=== PATIENT | female | born 1970 | race Caucasian/White ===

== ENCOUNTER 2019-12-03 17:46 | Emergency (ER) | payer BC ==
[2019-12-03] MEDS ORDERED: PROAIR DIG108 MCG/AC IN (18:06)
[2019-12-03] MEDS ORDERED: CITALOPRAM40 M1 PO (18:06)
[2019-12-03 18:20] LABS: HEMATOCRIT 46.7 % (37.0-47.0); HEMOGLOBIN 15.5 g/dl (12.0-16.0); IMMATURE GRANULOCYTES 0.4 % (0.0-5.0); MEAN CELL VOLUME 94.3 fL CALC (80.0-100.0); MEAN CORPUSCULAR HGB 31.3 pG CALC (26.0-32.0); MEAN CORPUSCULAR HGB CONC 33.2 g/dL CAL (32.0-36.0); NEUT# 8.03 thou/uL (2.00-7.15); RED BLOOD COUNT 4.95 mill/uL (4.20-5.60); RED CELL DISTRI WIDTH 13.2 % (11.5-15.5)
[2019-12-03 18:33] LABS: ALBUMIN 3.9 g/dL (3.2-5.0); ALKALINE PHOSPHATASE 81 u/l (38-126); ANION GAP 10 (6-22 (CALC)); BILIRUBIN, TOTAL 0.2 mg/dL (0.0-1.4); BUN 7 mg/dL (7-17); BUN/CREATININE RATIO 11 (12-20 (CALC)); CARBON DIOXIDE 23 mmol/l (22-30); CHLORIDE 104 mmol/l (95-108); CREATININE 0.6 mg/dL (0.5-1.0); GFR > 60 ML/MIN (>=60 (CALC)); GFR FOR AFR.AMER. > 60 ML/MIN (>=60 (CALC)); LIPASE 57 u/l (23-300); POTASSIUM 3.9 mmol/l (3.5-5.1); SGOT/AST 20 u/l (14-36); SODIUM 133 mmol/l (137-146); TOTAL PROTEIN 6.7 g/dL (6.3-8.2)
[2019-12-03 19:32] LABS: URINE BILIRUBIN - DIPSTICK NEGATIVE (NEGATIVE); URINE BLOOD DIPSTICK NEGATIVE (NEGATIVE); URINE COLOR YELLOW; URINE GLUCOSE - DIPSTICK NEGATIVE (NEGATIVE); URINE KETONE NEGATIVE (NEGATIVE); URINE LEUK ESTERASE NEGATIVE (NEGATIVE); URINE NITRITE - DIPSTICK NEGATIVE (Negative); URINE PROTEIN - DIPSTICK NEGATIVE (NEG-TRACE); URINE UROBILINOGEN - DIPSTICK 0.2 E.U./dL (0.2)
[2019-12-03] MEDS ORDERED: MIRALAX3350 N1 PO ×2 (20:36)
[2019-12-03 21:22] VITALS: BP 136/89
== END 2019-12-03 21:22 | disposition home or self-care (01) | DRG 390 ==
LOC: ED 17:46
PROVIDERS: Family Medicine
DX: K56.41 Fecal impaction (principal); I10 Essential (primary) hypertension; J44.9 Chronic obstructive pulmonary disease, unspecified

== ENCOUNTER 2020-01-17 09:21 | Emergency (ER) | payer BC ==
[~2020-01-17] VITALS: Ht 152.4 cm; Wt 68.2 kg
[~2020-01-17 09:21] MED LIST: CITALOPRAM40 M1 PO; MIRALAX3350 N1 PO; PROAIR DIG108 MCG/AC IN
[2020-01-17 10:30] LABS: HEMATOCRIT 49.2 % (37.0-47.0); HEMOGLOBIN 16.3 g/dl (12.0-16.0); IMMATURE GRANULOCYTES 0.3 % (0.0-5.0); MEAN CELL VOLUME 94.3 fL CALC (80.0-100.0); MEAN CORPUSCULAR HGB 31.2 pG CALC (26.0-32.0); MEAN CORPUSCULAR HGB CONC 33.1 g/dL CAL (32.0-36.0); NEUT# 7.04 thou/uL (2.00-7.15); RED BLOOD COUNT 5.22 mill/uL (4.20-5.60); RED CELL DISTRI WIDTH 13.5 % (11.5-15.5)
[2020-01-17 10:41] LABS: ALBUMIN 4.2 g/dL (3.2-5.0); ALKALINE PHOSPHATASE 83 u/l (38-126); ANION GAP 11 (6-22 (CALC)); BUN 10 mg/dL (7-17); BUN/CREATININE RATIO 14 (12-20 (CALC)); CARBON DIOXIDE 24 mmol/l (22-30); CHLORIDE 105 mmol/l (95-108); CREATININE 0.7 mg/dL (0.5-1.0); GFR > 60 ML/MIN (>=60 (CALC)); GFR FOR AFR.AMER. > 60 ML/MIN (>=60 (CALC)); POTASSIUM 4.6 mmol/l (3.5-5.1); SGOT/AST 20 u/l (14-36); SODIUM 136 mmol/l (137-146); TOTAL PROTEIN 6.4 g/dL (6.3-8.2)
[2020-01-17 10:42] LABS: BILIRUBIN, TOTAL 0.3 mg/dL (0.0-1.4)
[2020-01-17 10:51] LABS: ACT PARTIAL THROMBO TIME 26.5 SECONDS (20.0-32.5); PROTHROMBIN TIME 9.9 SECONDS (9.0-12.5)
[2020-01-17 10:55] LABS: D-DIMER 0.18 mg/L (0.19-0.60)
[2020-01-17] MEDS ORDERED: TRAZODONE50 MG PO (12:44)
[2020-01-17] MEDS ORDERED: DOXYCYC MONO100 M1 PO (13:38)
[2020-01-17] MEDS ORDERED: PROAIR HFA108 MCG/AC IN (13:38)
[2020-01-17 14:01] VITALS: BP 160/72
== END 2020-01-17 14:25 | disposition home or self-care (01) | DRG 192 ==
LOC: ED 09:21
PROVIDERS: Student in an Organized Health Care Education/Training Program
DX: J44.1 Chronic obstructive pulmonary disease with (acute) exacerbation (principal); I10 Essential (primary) hypertension; Z20.828 Contact with and (suspected) exposure to other viral communicable diseases
CPT/HCPCS: Q9967

== ENCOUNTER 2021-12-05 14:42 | Emergency (ER) | payer OTHER, BC ==
[2021-12-05] VITALS (10 sets, daily range): BP systolic 115–153; BP diastolic 71–100
[~2021-12-05] VITALS: Ht 152.4 cm; Wt 72.0 kg
[~2021-12-05 14:42] MED LIST changes: +DOXYCYC MONO100 M1 PO; +PROAIR HFA108 MCG/AC IN; +TRAZODONE50 MG PO
[2021-12-05] MEDS ORDERED: METOPROL TAR25 MG PO (15:00)
[2021-12-05] MEDS ORDERED: LOSARTAN POTASS50 MG PO (15:00)
[2021-12-05] MEDS ORDERED: MOTRIN800 MG PO (17:04)
== END 2021-12-05 17:22 | disposition home or self-care (01) | DRG 605 ==
LOC: ED 14:42
DX: S80.01XA Contusion of right knee, initial encounter (principal); S83.91XA Sprain of unspecified site of right knee, initial encounter; I10 Essential (primary) hypertension; J44.9 Chronic obstructive pulmonary disease, unspecified; W01.0XXA Fall on same level from slipping, tripping and stumbling without subsequent striking against object, initial encounter; Y92.89 Other specified places as the place of occurrence of the external cause; Y99.0 Civilian activity done for income or pay
CPT/HCPCS: L1830

== ENCOUNTER 2022-07-10 21:54 | Emergency (ER) | payer BC ==
[~2022-07-10] VITALS: Ht 152.4 cm; Wt 71.0 kg
[~2022-07-10 21:54] MED LIST changes: +LOSARTAN POTASS50 MG PO; +METOPROL TAR25 MG PO; +MOTRIN800 MG PO
[2022-07-10] MEDS ORDERED: HYDROCHLOROT25 MG PO (22:05)
[2022-07-10] MEDS ORDERED: METOPROL TAR25 MG PO (22:06)
[2022-07-10 22:18] VITALS: BP 98/69
[2022-07-10 22:20] VITALS: BP 109/71
[2022-07-10 22:30] VITALS: BP 105/69
[2022-07-10 22:45] VITALS: BP 91/56
[2022-07-10 23:02] LABS: BASO% 0.6 % (0-3); EOS% 0.7 % (0-8); HEMATOCRIT 47.3 % (37.0-47.0); HEMOGLOBIN 15.7 g/dl (12.0-16.0); IMMATURE GRANULOCYTES 0.2 % (0.0-5.0); LYMPH% 6.5 % (15-41); MEAN CELL VOLUME 97.9 fL CALC (80.0-100.0); MEAN CORPUSCULAR HGB 32.5 pG CALC (26.0-32.0); MEAN CORPUSCULAR HGB CONC 33.2 g/dL CAL (32.0-36.0); MONO% 4.6 % (2-13); NEUT# 8.94 thou/uL (2.00-7.15); NEUT% 87.4 % (42-76); RED BLOOD COUNT 4.83 mill/uL (4.20-5.60); RED CELL DISTRI WIDTH 13.5 % (11.5-15.5)
[2022-07-10 23:30] VITALS: BP 91/64
[2022-07-10 23:45] VITALS: BP 109/70
[2022-07-11] VITALS (8 sets, daily range): BP systolic 108–132; BP diastolic 69–87
[2022-07-11] MEDS ORDERED: VIBRAMYCIN100 M2 PO (00:45)
[2022-07-11] MEDS ORDERED: PREDNISONE50 MG PO (00:45)
[2022-07-11] MEDS ORDERED: ALBUTEROL SUL0.083 % IN (00:45)
== END 2022-07-11 01:58 | disposition home or self-care (01) | DRG 192 ==
LOC: ED 21:54
PROVIDERS: Family Medicine
DX: J44.1 Chronic obstructive pulmonary disease with (acute) exacerbation (principal)

== ENCOUNTER 2022-11-15 10:22 | Inpatient (IN) | payer BC ==
[2022-11-15] VITALS (22 sets, daily range): BP systolic 114–151; BP diastolic 59–88
[~2022-11-15] VITALS: Ht 152.4 cm; Wt 77.8 kg
[~2022-11-15 10:22] MED LIST changes: +ALBUTEROL SUL0.083 % IN; +HYDROCHLOROT25 MG PO; +PREDNISONE50 MG PO; +VIBRAMYCIN100 M2 PO
[2022-11-15 11:01] LABS: ALBUMIN 4.4 g/dL (3.2-5.0); ALKALINE PHOSPHATASE 77 u/l (38-126); ANION GAP 15 (6-22 (CALC)); BUN 11 mg/dL (7-17); BUN/CREATININE RATIO 17 (12-20 (CALC)); CARBON DIOXIDE 26 mmol/l (22-30); CHLORIDE 105 mmol/l (95-108); CREATININE 0.7 mg/dL (0.5-1.0); ETHYL ALCOHOL 0 mg/dl (0-30); GFR FOR AFR.AMER. > 60 ML/MIN (>=60 (CALC)); GFR OTHER RACES > 60 ML/MIN (>=60 (CALC)); POTASSIUM 4.5 mmol/l (3.5-5.1); SGOT/AST 33 u/l (14-36); SODIUM 142 mmol/l (137-146); TOTAL PROTEIN 6.7 g/dL (6.3-8.2)
[2022-11-15 11:17] LABS: BASO% 0.3 % (0-3); HEMOGLOBIN 16.4 g/dl (12.0-16.0); IMMATURE GRANULOCYTES 0.8 % (0.0-5.0); LYMPH% 3.8 % (15-41); MEAN CELL VOLUME 96.1 fL CALC (80.0-100.0); MEAN CORPUSCULAR HGB 32.2 pG CALC (26.0-32.0); MEAN CORPUSCULAR HGB CONC 33.5 g/dL CAL (32.0-36.0); MONO% 2.1 % (2-13); NEUT# 13.81 thou/uL (2.00-7.15); RED BLOOD COUNT 5.1 mill/uL (4.20-5.60); RED CELL DISTRI WIDTH 13.1 % (11.5-15.5)
[2022-11-15] MEDS ORDERED: TRELEGY ELLIPTA1 AE1 (12:56)
[2022-11-15 14:04] LABS: URINE BILIRUBIN - DIPSTICK NEGATIVE (NEGATIVE); URINE BLOOD DIPSTICK NEGATIVE (NEGATIVE); URINE COLOR YELLOW; URINE GLUCOSE - DIPSTICK NEGATIVE (NEGATIVE); URINE KETONE NEGATIVE (NEGATIVE); URINE LEUK ESTERASE NEGATIVE (NEGATIVE); URINE PROTEIN - DIPSTICK NEGATIVE (NEG-TRACE); URINE SPECIFIC GRAVITY >=1.030; URINE UROBILINOGEN - DIPSTICK 0.2 E.U./dL (0.2)
[2022-11-15 14:08] LABS: URINE NITRITE - DIPSTICK NEGATIVE (Negative)
[2022-11-16] VITALS (24 sets, daily range): BP systolic 106–151; BP diastolic 61–90
[2022-11-16 08:44] LABS: HEMATOCRIT 42.1 % (37.0-47.0); HEMOGLOBIN 13.6 g/dl (12.0-16.0); MEAN CELL VOLUME 101.7 fL CALC (80.0-100.0); MEAN CORPUSCULAR HGB 32.9 pG CALC (26.0-32.0); MEAN CORPUSCULAR HGB CONC 32.3 g/dL CAL (32.0-36.0); RED BLOOD COUNT 4.14 mill/uL (4.20-5.60); RED CELL DISTRI WIDTH 13.4 % (11.5-15.5)
[2022-11-16 09:00] LABS: ALKALINE PHOSPHATASE 55 u/l (38-126); ANION GAP 8 (6-22 (CALC)); BUN 13 mg/dL (7-17); BUN/CREATININE RATIO 18 (12-20 (CALC)); CARBON DIOXIDE 25 mmol/l (22-30); CHLORIDE 110 mmol/l (95-108); CREATININE 0.7 mg/dL (0.5-1.0); GFR FOR AFR.AMER. > 60 ML/MIN (>=60 (CALC)); GFR OTHER RACES > 60 ML/MIN (>=60 (CALC)); MAGNESIUM 1.7 mg/dL (1.6-2.3); SGOT/AST 26 u/l (14-36); SODIUM 139 mmol/l (137-146)
[2022-11-16 09:01] LABS: ALBUMIN 3.2 g/dL (3.2-5.0); BILIRUBIN, TOTAL 0.2 mg/dL (0.02-1.3); TOTAL PROTEIN 5.2 g/dL (6.3-8.2)
[2022-11-17] VITALS (24 sets, daily range): BP systolic 108–152; BP diastolic 66–98
[2022-11-17 04:23] LABS: HEMATOCRIT 41.2 % (37.0-47.0); HEMOGLOBIN 13.3 g/dl (12.0-16.0); MEAN CORPUSCULAR HGB 32.3 pG CALC (26.0-32.0); MEAN CORPUSCULAR HGB CONC 32.3 g/dL CAL (32.0-36.0); RED BLOOD COUNT 4.12 mill/uL (4.20-5.60); RED CELL DISTRI WIDTH 13.1 % (11.5-15.5)
[2022-11-17 04:52] LABS: ALBUMIN 3.3 g/dL (3.2-5.0); ALKALINE PHOSPHATASE 56 u/l (38-126); ANION GAP 5 (6-22 (CALC)); BUN 15 mg/dL (7-17); BUN/CREATININE RATIO 25 (12-20 (CALC)); CARBON DIOXIDE 28 mmol/l (22-30); CHLORIDE 110 mmol/l (95-108); CREATININE 0.6 mg/dL (0.5-1.0); GFR FOR AFR.AMER. > 60 ML/MIN (>=60 (CALC)); GFR OTHER RACES > 60 ML/MIN (>=60 (CALC)); MAGNESIUM 1.9 mg/dL (1.6-2.3); POTASSIUM 3.8 mmol/l (3.5-5.1); SGOT/AST 30 u/l (14-36); SODIUM 139 mmol/l (137-146); TOTAL PROTEIN 5.5 g/dL (6.3-8.2)
[2022-11-18] VITALS (27 sets, daily range): BP systolic 126–163; BP diastolic 72–133
[2022-11-18 06:03] LABS: ALBUMIN 3.6 g/dL (3.2-5.0); ALKALINE PHOSPHATASE 58 u/l (38-126); ANION GAP 11 (6-22 (CALC)); BUN 15 mg/dL (7-17); BUN/CREATININE RATIO 23 (12-20 (CALC)); CARBON DIOXIDE 24 mmol/l (22-30); CHLORIDE 108 mmol/l (95-108); CREATININE 0.6 mg/dL (0.5-1.0); GFR FOR AFR.AMER. > 60 ML/MIN (>=60 (CALC)); GFR OTHER RACES > 60 ML/MIN (>=60 (CALC)); MAGNESIUM 1.9 mg/dL (1.6-2.3); POTASSIUM 4.1 mmol/l (3.5-5.1); SGOT/AST 34 u/l (14-36); SODIUM 139 mmol/l (137-146)
[2022-11-18 06:06] LABS: HEMATOCRIT 41.8 % (37.0-47.0); HEMOGLOBIN 13.8 g/dl (12.0-16.0); MEAN CELL VOLUME 100.2 fL CALC (80.0-100.0); MEAN CORPUSCULAR HGB 33.1 pG CALC (26.0-32.0); RED BLOOD COUNT 4.17 mill/uL (4.20-5.60); RED CELL DISTRI WIDTH 13.1 % (11.5-15.5)
[2022-11-19] VITALS (30 sets, daily range): BP systolic 134–171; BP diastolic 77–105
[2022-11-20] VITALS: BP 158/87
[2022-11-20 02:00] VITALS: BP 147/84
[2022-11-20 04:00] VITALS: BP 138/81
[2022-11-20 05:49] LABS: HEMOGLOBIN 14.8 g/dl (12.0-16.0); MEAN CELL VOLUME 99.1 fL CALC (80.0-100.0); MEAN CORPUSCULAR HGB 32.6 pG CALC (26.0-32.0); MEAN CORPUSCULAR HGB CONC 32.9 g/dL CAL (32.0-36.0); RED BLOOD COUNT 4.54 mill/uL (4.20-5.60); RED CELL DISTRI WIDTH 13.2 % (11.5-15.5)
[2022-11-20 06:00] LABS: ALBUMIN 3.4 g/dL (3.2-5.0); ALKALINE PHOSPHATASE 60 u/l (38-126); CHLORIDE 103 mmol/l (95-108); CREATININE 0.8 mg/dL (0.5-1.0); GFR FOR AFR.AMER. > 60 ML/MIN (>=60 (CALC)); GFR OTHER RACES > 60 ML/MIN (>=60 (CALC)); POTASSIUM 4.3 mmol/l (3.5-5.1); SGOT/AST 27 u/l (14-36); SODIUM 136 mmol/l (137-146); TOTAL PROTEIN 5.5 g/dL (6.3-8.2)
[2022-11-20 06:01] VITALS: BP 153/87
[2022-11-20 06:03] LABS: ANION GAP 8 (6-22 (CALC)); BUN 36 mg/dL (7-17); BUN/CREATININE RATIO 45 (12-20 (CALC)); CARBON DIOXIDE 29 mmol/l (22-30)
[2022-11-20 08:00] VITALS: BP 157/95
[2022-11-20] MEDS ORDERED: TOPROL XL25 MG PO (08:17)
[2022-11-20] MEDS ORDERED: LEXAPRO10 MG PO (08:18)
[2022-11-20] MEDS ORDERED: PREDNISONE10 MG PO (08:19)
[2022-11-20 08:59] VITALS: BP 157/95
== END 2022-11-20 09:15 | disposition home or self-care (01) | DRG 917 ==
LOC: ED 10:22 → ED-I 13:00 → ED 14:04 → ICU 14:05
PROVIDERS: Family Medicine; ADMIT Internal Medicine; ATTEND Internal Medicine
DX: T42.8X2A Poisoning by antiparkinsonism drugs and other central muscle-tone depressants, intentional self-harm, initial encounter (principal); J96.01 Acute respiratory failure with hypoxia; C95.90 Leukemia, unspecified not having achieved remission; J44.1 Chronic obstructive pulmonary disease with (acute) exacerbation; T51.0X2A Toxic effect of ethanol, intentional self-harm, initial encounter; E86.0 Dehydration; F32.9 Major depressive disorder, single episode, unspecified; I10 Essential (primary) hypertension; F10.20 Alcohol dependence, uncomplicated; F17.200 Nicotine dependence, unspecified, uncomplicated; Y92.009 Unspecified place in unspecified non-institutional (private) residence as the place of occurrence of the external cause; Z87.442 Personal history of urinary calculi; Z91.51 Personal history of suicidal behavior; Z62.810 Personal history of physical and sexual abuse in childhood; Z79.899 Other long term (current) drug therapy; Z20.822 Contact with and (suspected) exposure to COVID-19
CPT/HCPCS: J1650

== ENCOUNTER 2024-01-04 18:22 | Emergency (ER) | payer MEDICAID ==
[~2024-01-04] VITALS: Ht 152.4 cm; Wt 85.9 kg
[~2024-01-04 18:22] MED LIST changes: +ALBUTEROL108 MCG/AC IN; +BREZTRI AEROSPH1 AER IN; +CEFDINIR300 MG PO; +CITALOPRAM40 MG PO; +DICLOFENAC SODI75 M1 PO; +IPRATROPIU0.5 MG/3 M IN; +LEXAPRO10 MG PO; +MEDDOSEPAK PO; +METOPROLOL SUCC50 MG PO; +PREDNISONE10 MG PO; +TOPROL XL25 MG PO; +TRELEGY ELLIPTA1 AE1
[2024-01-04 18:37] VITALS: BP 116/95
[2024-01-04 18:45] VITALS: BP 116/84
[2024-01-04] MEDS ORDERED: TOPROL XL50 MG PO (18:49)
[2024-01-04] MEDS ORDERED: AZELASTINE HYD0.15 % (18:55)
[2024-01-04] MEDS ORDERED: LEVOCETIRIZINE D5 MG PO (18:55)
[2024-01-04 19:00] VITALS: BP 131/78
[2024-01-04 19:15] VITALS: BP 126/85
== END 2024-01-04 19:32 | disposition home or self-care (01) ==
LOC: ED 18:22
DX: J32.1 Chronic frontal sinusitis (principal); I10 Essential (primary) hypertension; J44.9 Chronic obstructive pulmonary disease, unspecified; C95.90 Leukemia, unspecified not having achieved remission; F17.200 Nicotine dependence, unspecified, uncomplicated; Z77.120 Contact with and (suspected) exposure to mold (toxic); Z99.81 Dependence on supplemental oxygen

== ENCOUNTER 2024-01-14 16:04 | Emergency (ER) | payer SELFPAY ==
[~2024-01-14] VITALS: Ht 152.4 cm; Wt 72.6 kg
[2024-01-14] VITALS (8 sets, daily range): BP systolic 105–139; BP diastolic 63–88
[~2024-01-14 16:04] MED LIST changes: +AZELASTINE HYD0.15 %; +LEVOCETIRIZINE D5 MG PO; +TOPROL XL50 MG PO
[2024-01-14] MEDS ORDERED: ALBUTEROL SULFATE 2.5 MG VIAL NEB ONE (16:40)
[2024-01-14 16:42] LABS: BASO% 0.2 % (0-3); EOS% 0.1 % (0-8); HEMATOCRIT 42.9 % (37.0-47.0); HEMOGLOBIN 13.5 g/dl (12.0-16.0); IMMATURE GRANULOCYTES 0.9 % (0.0-5.0); LYMPH% 3.2 % (15-41); MEAN CORPUSCULAR HGB 32.7 pG CALC (26.0-32.0); MEAN CORPUSCULAR HGB CONC 31.5 g/dL CAL (32.0-36.0); MONO% 1.3 % (2-13); NEUT# 16.14 thou/uL (2.00-7.15); NEUT% 94.3 % (42-76); RED BLOOD COUNT 4.13 mill/uL (4.20-5.60); RED CELL DISTRI WIDTH 15.1 % (11.5-15.5)
[2024-01-14 16:44] LABS: MEAN CELL VOLUME 103.9 fL CALC (80.0-100.0)
[2024-01-14] MEDS ORDERED: IPRATROPIUM-Albuterol 0.5MG-2.5MG/3 ML NEB ONE (16:45)
[2024-01-14 17:12] LABS: ALBUMIN 3.5 g/dL (3.2-5.0); ALKALINE PHOSPHATASE 61 u/l (38-126); ANION GAP 8 (6-22 (CALC)); BUN 19 mg/dL (7-17); BUN/CREATININE RATIO 22 (12-20 (CALC)); CARBON DIOXIDE 29 mmol/l (22-30); CHLORIDE 100 mmol/l (95-108); CREATININE 0.9 mg/dL (0.5-1.0); ESTIMATED GFR 77 ML/MIN (>=90 (CALC)); POTASSIUM 3.5 mmol/l (3.5-5.1); SGOT/AST 39 u/l (14-36); SODIUM 133 mmol/l (137-146)
[2024-01-14 17:14] LABS: BILIRUBIN, TOTAL 0.3 mg/dL (0.02-1.3)
[2024-01-14] MEDS ORDERED: ALBUTEROL SUL0.083 % IN (18:30)
[2024-01-14] MEDS ORDERED: ZITHROMAX Z-PA250 MG PO (18:31)
== END 2024-01-14 18:50 | disposition home or self-care (01) | DRG 202 ==
LOC: ED 16:04
PROVIDERS: Family Medicine
DX: J20.9 Acute bronchitis, unspecified (principal); C95.90 Leukemia, unspecified not having achieved remission; J44.0 Chronic obstructive pulmonary disease with (acute) lower respiratory infection; I10 Essential (primary) hypertension; F17.210 Nicotine dependence, cigarettes, uncomplicated; Z99.81 Dependence on supplemental oxygen

== ENCOUNTER 2024-01-23 12:11 | Observation (INO) | payer SELFPAY ==
[2024-01-23] VITALS (15 sets, daily range): BP systolic 119–167; BP diastolic 72–103
[~2024-01-23] VITALS: Ht 152.4 cm; Wt 86.5 kg
[~2024-01-23 12:11] MED LIST changes: +ZITHROMAX Z-PA250 MG PO
[2024-01-23 12:41] LABS: BASO% 0.3 % (0-3); EOS% 0.5 % (0-8); HEMATOCRIT 44.9 % (37.0-47.0); HEMOGLOBIN 14.4 g/dl (12.0-16.0); IMMATURE GRANULOCYTES 0.8 % (0.0-5.0); LYMPH% 5.8 % (15-41); MEAN CELL VOLUME 104.2 fL CALC (80.0-100.0); MEAN CORPUSCULAR HGB 33.4 pG CALC (26.0-32.0); MEAN CORPUSCULAR HGB CONC 32.1 g/dL CAL (32.0-36.0); MONO% 2.9 % (2-13); NEUT# 13.31 thou/uL (2.00-7.15); NEUT% 89.7 % (42-76); RED BLOOD COUNT 4.31 mill/uL (4.20-5.60); RED CELL DISTRI WIDTH 15.6 % (11.5-15.5)
[2024-01-23 13:21] LABS: ALBUMIN 3.6 g/dL (3.2-5.0); ALKALINE PHOSPHATASE 55 u/l (38-126); ANION GAP 7 (6-22 (CALC)); BILIRUBIN, TOTAL 0.4 mg/dL (0.02-1.3); BUN 29 mg/dL (7-17); BUN/CREATININE RATIO 24 (12-20 (CALC)); CALCULATED LDLCHOLESTEROL 63 mg/dL (62-129 (CALC)); CARBON DIOXIDE 30 mmol/l (22-30); CHLORIDE 106 mmol/l (95-108); CHOLESTEROL HDL RATIO 2.2 (<4.4 (CALC)); CREATININE 1.2 mg/dL (0.5-1.0); ESTIMATED GFR 54 ML/MIN (>=90 (CALC)); HDL CHOLESTEROL 72 mg/dL (39.0-59.0); POTASSIUM 3.9 mmol/l (3.5-5.1); SGOT/AST 56 u/l (14-36); SODIUM 138 mmol/l (137-146); TOTAL CHOLESTEROL 159 mg/dl (0-199); TOTAL PROTEIN 6.1 g/dL (6.3-8.2); TOTAL TRIGLYCERIDES 117 mg/dl (0-149); VLDL CHOLESTROL 23 mg/dl (2-49 (CALC))
[2024-01-23 13:48] LABS: PROTHROMBIN TIME 9.5 SECONDS (9.0-12.5)
[2024-01-23] MEDS ORDERED: ASPIRIN 81 MG/TAB PO ONE (14:00)
[2024-01-23] MEDS ORDERED: IPRATROPIUM-Albuterol 0.5MG-2.5MG/3 ML NEB ONE ×2 (14:35)
[2024-01-23] MEDS ORDERED: methylPREDNISolone SODIUM SUCC 125 MG/2 ML SDV IV ONE (14:35)
[2024-01-23] MEDS ORDERED: AZITHROMYCIN 500 MG in SODIUM CHLORIDE 0.9% 250 ML IV ONE (14:35)
[2024-01-23] MEDS ORDERED: MAGNESIUM HYDROXIDE 30 ML UDC PO PRN (15:55)
[2024-01-23] MEDS ORDERED: ACETAMINOPHEN 325 MG/TAB PO PRN (15:55)
[2024-01-23] MEDS ORDERED: DEXTROSE 250 ML IV PRN (15:55)
[2024-01-23] MEDS ORDERED: IPRATROPIUM-Albuterol 0.5MG-2.5MG/3 ML NEB PRN (16:05)
[2024-01-23] MEDS ORDERED: CLOPIDOGREL BISULFATE 75 MG/TAB TAB PO SCH (17:00)
[2024-01-23] MEDS ORDERED: methylPREDNISolone Sod Succ 40 MG/ML SDV IV SCH (21:00)
[2024-01-23] MEDS ORDERED: ATORVASTATIN CALCIUM 40 MG/TAB PO SCH (21:00)
[2024-01-23] MEDS ORDERED: Heparin SODIUM (Porcine) 5,000 UNITS/ML SDV SC SCH (22:00)
[2024-01-24] VITALS (7 sets, daily range): BP systolic 133–152; BP diastolic 82–97
[2024-01-24 04:59] LABS: BASO% 0.4 % (0-3); HEMATOCRIT 42.9 % (37.0-47.0); HEMOGLOBIN 13.8 g/dl (12.0-16.0); LYMPH% 4.2 % (15-41); MEAN CELL VOLUME 104.9 fL CALC (80.0-100.0); MEAN CORPUSCULAR HGB 33.7 pG CALC (26.0-32.0); MEAN CORPUSCULAR HGB CONC 32.2 g/dL CAL (32.0-36.0); MONO% 0.7 % (2-13); NEUT# 12.59 thou/uL (2.00-7.15); NEUT% 93.7 % (42-76); RED BLOOD COUNT 4.09 mill/uL (4.20-5.60); RED CELL DISTRI WIDTH 15.3 % (11.5-15.5)
[2024-01-24 05:07] LABS: ALBUMIN 3.4 g/dL (3.2-5.0); BILIRUBIN, TOTAL 0.4 mg/dL (0.02-1.3); CREATININE 0.7 mg/dL (0.5-1.0); MAGNESIUM 2.2 mg/dL (1.6-2.3); TOTAL PROTEIN 5.6 g/dL (6.3-8.2)
[2024-01-24 05:14] LABS: POTASSIUM 4.7 mmol/l (3.5-5.1)
[2024-01-24] MEDS ORDERED: ASPIRIN EC 81 MG/TAB PO SCH (09:00)
[2024-01-24] MEDS ORDERED: DiphenhydrAMINE HCL 50 MG/ML SDV IV SCH (12:00)
[2024-01-24] MEDS ORDERED: TRELEGY ELLIPTA1 AER IN (13:02)
[2024-01-24] MEDS ORDERED: AZITHROMYCIN 500 MG in SODIUM CHLORIDE 0.9% 250 ML IV SCH (16:00)
[2024-01-24] MEDS ORDERED: METOPROLOL SUCCINATE 50 MG/TAB PO SCH (22:30)
[2024-01-25 00:08] LABS: URINE BILIRUBIN - DIPSTICK Negative (NEGATIVE); URINE BLOOD DIPSTICK Negative (NEGATIVE); URINE COLOR Yellow; URINE GLUCOSE - DIPSTICK Negative (NEGATIVE); URINE KETONE Negative (NEGATIVE); URINE LEUK ESTERASE Negative (NEGATIVE); URINE NITRITE - DIPSTICK Negative (Negative); URINE PROTEIN - DIPSTICK Negative (NEG-TRACE); URINE UROBILINOGEN - DIPSTICK 0.2 E.U./dL (0.2)
[2024-01-25 05:13] VITALS: BP 147/90
[2024-01-25 05:40] LABS: BASO% 0.2 % (0-3); EOS% 0.1 % (0-8); HEMATOCRIT 43.8 % (37.0-47.0); HEMOGLOBIN 14.2 g/dl (12.0-16.0); IMMATURE GRANULOCYTES 0.7 % (0.0-5.0); LYMPH% 4.2 % (15-41); MEAN CORPUSCULAR HGB 34.1 pG CALC (26.0-32.0); MEAN CORPUSCULAR HGB CONC 32.4 g/dL CAL (32.0-36.0); MONO% 2.9 % (2-13); NEUT# 12.65 thou/uL (2.00-7.15); NEUT% 91.9 % (42-76); RED BLOOD COUNT 4.17 mill/uL (4.20-5.60); RED CELL DISTRI WIDTH 15.7 % (11.5-15.5)
[2024-01-25 05:44] LABS: ALBUMIN 3.5 g/dL (3.2-5.0); CREATININE 0.7 mg/dL (0.5-1.0); MAGNESIUM 2.1 mg/dL (1.6-2.3); POTASSIUM 5.1 mmol/l (3.5-5.1); TOTAL PROTEIN 5.6 g/dL (6.3-8.2)
[2024-01-25 05:48] LABS: BILIRUBIN, TOTAL 0.2 mg/dL (0.02-1.3)
[2024-01-25 07:12] VITALS: BP 138/86
[2024-01-25] MEDS ORDERED: METOPROLOL SUCCINATE 50 MG/TAB PO SCH (09:00)
[2024-01-25] MEDS ORDERED: hydroCHLOROthiazide 25 MG/TAB PO SCH (09:00)
[2024-01-25] MEDS ORDERED: ADLT ASA LOW81 MG PO (09:45)
[2024-01-25] MEDS ORDERED: PLAVIX75 MG PO (09:46)
[2024-01-25] MEDS ORDERED: ZPAK PO (09:46)
[2024-01-25] MEDS ORDERED: PREDNISONE10 MG PO (09:48)
[2024-01-25 10:30] VITALS: BP 148/89
== END 2024-01-25 11:17 | disposition home or self-care (01) | DRG 92 ==
LOC: ED 12:11 → ED-I 12:52 → ED 12:52 → ED-I 14:18 → ED 15:42 → MS2 15:43
PROVIDERS: Family Medicine; Nurse Practitioner Family; ADMIT Internal Medicine; ATTEND Internal Medicine
DX: R20.2 Paresthesia of skin (principal); J44.1 Chronic obstructive pulmonary disease with (acute) exacerbation; J96.11 Chronic respiratory failure with hypoxia; R53.1 Weakness; M50.20 Other cervical disc displacement, unspecified cervical region; I10 Essential (primary) hypertension; D45 Polycythemia vera; E78.5 Hyperlipidemia, unspecified; E66.01 Morbid (severe) obesity due to excess calories; F17.200 Nicotine dependence, unspecified, uncomplicated; Z68.37 Body mass index [BMI] 37.0-37.9, adult; Z91.190 Patient's noncompliance with other medical treatment and regimen due to financial hardship; Z99.81 Dependence on supplemental oxygen
CPT/HCPCS: G0378; Q9967